=== PATIENT | female | born 1960 | race Caucasian/White ===

== ENCOUNTER 2025-02-22 10:12 | Outpatient (AMB) | payer OTHER, MEDICAID, SELFPAY ==
--- NOTE | 2025-02-22 10:16 | MHC.OFFVIS ---
Intake Visit Reasons: 6 months Follow up Allergies No Known Allergies Allergy (Verified 02/22/25 10:23) Medication List - Last Reconciled 02/22/25 by Shirley Zuluaga CNP amitriptyline 75 mg PO BEDTIME meclizine 25 mg PO BID PRN ondansetron HCl 4 mg PO Q8H PRN pantoprazole 40 mg PO BID propranolol ER 120 mg PO DAILY rosuvastatin 5 mg PO DAILY zolmitriptan take 1 tab at onset of headache; if no relief, may repeat 1 tab after at least 2 hrs; max = 2 tabs/24 hrs PO 30 days HPI Comments Details: She was doing okay. Vertigo was about the same. Gets some episodes when lying flat or when on left side if she does not have anything to support her neck.?Feels like the room is spinning and becomes nauseous. Has had periods of vertigo on/off in the past. Meclizine as needed helps. Gets migraines 2-3x/month, Zomig as needed helps. Gets regular headaches about 4x/week. Sleep was okay. Continues working [employer], 3 shifts/week.? She has 23+ year hx of migraine headaches with nausea and tension type headaches. 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 Headaches triggered by lack of sleep. She has had no problems with her peptic ulcer disease, has a history of previously perforated ulcer. No problem with anemia. [facility] Medical History (Updated 02/22/25 @ 10:22 by Shirley Zuluaga CNP) Breast cancer Perforated ulcer Anemia Hypercholesterolemia Migraines Review of Systems Const Denies chills, Denies daytime sleepiness, Denies difficulty sleeping, Denies fatigue, Denies fever(s), Denies frequent falls, Reports headache(s), Denies increased appetite, Denies poor appetite, Denies snoring, Denies weakness, Denies weight gain and Denies weight loss Eyes Denies loss of vision ENT Denies vertigo, Reports dizziness, Reports headache(s) and Denies neck pain Card Denies chest pain at rest, Denies chest pain with activity, Denies syncope, Denies leg edema, Denies palpitations, Denies dyspnea and Denies dyspnea on exertion Resp Denies cough, Denies dyspnea, Denies dyspnea on exertion and Denies snoring GI Denies abdominal pain, Denies constipation, Denies heartburn, Denies diarrhea and Denies nausea Denies urinary frequency, Denies urinary incontinence and Denies urinary urgency Musc Denies abnormal gait, Denies back pain, Denies myalgias, Denies arthralgias, Denies neck pain, Denies numbness and Denies tingling Neuro Denies abnormal gait, Denies vertigo, Reports dizziness, Denies syncope, Denies frequent falls, Reports headache(s), Denies lack of coordination, Denies loss of vision, Denies memory loss, Denies numbness, Denies Other visual disturbances, Denies restless legs, Denies seizure-like activity, Denies tingling, Denies paresthesias, Denies tremor(s) and Denies weakness Psych Denies anxiety, Denies depression, Denies auditory hallucinations, Denies memory loss and Denies visual hallucinations Endo Denies fatigue and Denies palpitations Physical Exam Const Other: General Appearance:? normal, in no acute distress. Heart:? S1, S2 normal, no murmurs. Lungs:? clear anteriorly and posteriorly. Musculoskeletal:? normal. Extremities:? no edema. Psych:? alert, oriented, cognitive function intact, cooperative with exam. Neuro Other: Abnormal Neurological Findings:?none.? Mental Status: alert and oriented X 3. Normal attention, orientation, memory, and affect. Cranial Nerves: Pupils are equal, round, and reactive to light. External ocular muscles are intact. Visual valdes are full, no ptosis. Face is symmetrical, no facial weakness or droop. Facial sensations are normal. Tongue protrudes in midline. Palate elevates symmetrically. Shoulder shrugging is normal Motor Examination: Normal muscle tone, bulk and strength. No atrophy or fasciculations. No drift of the extended upper extremities. DTR 2+. Plantars are flexor. Sensory Exam: Normal light touch, temperature, pinprick, vibration, and joint-position sensations. Rhomberg sign is absent. Coordination: No ataxia. No titubation. Gait Exam: Within normal limits. Cerebellar Signs: [id number] is okay. Extrapyramidal System: No tremor, rigidity with normal facial expressions. No bradykinesia. No bradyphrenia. Normal arm swing and posture. No propulsion or retropulsion. Speech: Normal. Results Reviewed Results Reviewed: 02/09/21 NCV/EMG UE Mild to moderate left and an early Carpal tunnel syndrome on the right. Normal EMG in the left C5-T1 innervated muscles. Assessment & Plan Assessment & Plan (1) Migraines: Code(s): G43.909 - Migraine, unspecified, not intractable, without status migrainosus Category: Medical Qualifiers: Intractability: not intractable Migraine type: unspecified Status migrainosus presence: without status migrainosus Qualified Code(s): G43.909 - Migraine, unspecified, not intractable, without status migrainosus Plan: Continue propranolol ER 120mg 1 capsule daily. Continue zolmitriptan 5mg 1 tablet as needed for migraine. Continue ondansetron 4mg 1 tablet as needed for nausea/vomiting. (2) Tension headache: Code(s): G44.209 - Tension-type headache, unspecified, not intractable Category: Medical Plan: Continue amitriptyline 75mg 1 tablet at bedtime. (3) Vertigo: Code(s): R42 - Dizziness and giddiness Category: Medical Plan: Continue meclizine 25mg 1 tablet as needed q12h for dizziness #60 for 30 days. Coding Level of Care Code Est Pt Level 4 (01703) Diagnoses Migraine without status migrainosus, not intractable, unspecified migraine type G43.909 Intractability: not intractable Migraine type: unspecified Status migrainosus presence: without status migrainosus Tension headache G44.209 Vertigo R42
== END 2025-02-22 10:39 | disposition home or self-care (01) ==
LOC: HO.HSM 10:12
PROVIDERS: PCP Internal Medicine; Visit Provider Registered Nurse
DX: G43.909 Migraine, unspecified, not intractable, without status migrainosus (principal); G44.209 Tension-type headache, unspecified, not intractable; R42 Dizziness and giddiness
CPT/HCPCS: 99214